=== PATIENT | female | born 1975 | race Caucasian/White ===

== ENCOUNTER 2018-01-28 18:46 | Emergency (ER) | payer OTHER ==
[~2018-01-28] VITALS: Ht 167.6 cm; Wt 72.6 kg
[2018-01-28] MEDS ORDERED: BIRTH CONTROL PILL (18:53)
[2018-01-28] MEDS ORDERED: PAXIL10 MG (18:53)
[2018-01-28] MEDS ORDERED: DIPHENHIST50 MG PO (19:50)
[2018-01-28] MEDS ORDERED: EPIPEN 2-P0.3 MG/0.3 IM (19:50)
[2018-01-28] MEDS ORDERED: PREDNISONE50 MG PO (19:50)
[2018-01-28 20:25] VITALS: BP 112/66
== END 2018-01-28 20:27 | disposition home or self-care (01) ==
LOC: M.ERS 18:46
DX: L50.9 Urticaria, unspecified (principal); T78.1XXA Other adverse food reactions, not elsewhere classified, initial encounter; Z91.013 Allergy to seafood; X58.XXXA Exposure to other specified factors, initial encounter